=== PATIENT | female | born 1995 | race Two or more races ===

== ENCOUNTER 2022-12-19 20:05 | Emergency (ER) | payer OTHER ==
[~2022-12-19] VITALS: Ht 152.4 cm; Wt 62.6 kg
[2022-12-19 21:37] VITALS: BP 112/71; TEMP 98.1; O2SAT 98
== END 2022-12-19 21:38 | disposition home or self-care (01) ==
LOC: ER 20:05
DX: S30.1XXA Contusion of abdominal wall, initial encounter (principal); W01.0XXA Fall on same level from slipping, tripping and stumbling without subsequent striking against object, initial encounter; Y93.89 Activity, other specified; Y92.89 Other specified places as the place of occurrence of the external cause; Y99.8 Other external cause status
CPT/HCPCS: 71100-TC